=== PATIENT | male | born 1950 | race Caucasian/White ===

== ENCOUNTER → 2019-09-24 | Outpatient (CLI) | payer MEDICARE ==
--- NOTE | 2019-09-24 14:51 | REPPI ---
TRANSRECTAL PROSTATE ULTRASOUND WITH ULTRASOUND GUIDANCE FOR PROSTATE BIOPSY: Transrectal ultrasound of the prostate performed. Prostate measures 3.2 x 2.8 x 3.9 cm for a total volume of 18.1 mL. Small cystic changes and echogenic calcifications are seen in the prostate. Echotexture is heterogenous. No mass is seen. Ultrasound guidance was provided for Dr. Ayers who performed ultrasound guided biopsy of the prostate. Electronically Signed by Robbie Weller MD 09/25/2019 01:47 P
== END ==
LOC: M SMT PRO 07:59
PROVIDERS: ATTEND Nurse Practitioner Women's Health
DX: C61 Malignant neoplasm of prostate (principal)
CPT/HCPCS: 55700; 76872; 76942; G0416

== ENCOUNTER → 2019-10-01 | Outpatient (CLI) | payer MEDICARE ==
[2019-10-01 16:40] LABS: CREATININE FOR GFR 1.93 MG/DL (0.70-1.30); GLOMERULAR FILTRATION RATE 36.7 (>42); POTASSIUM SERUM 4.6 MEQ/L (3.5-5.1)
== END ==
LOC: M LAB 14:51
PROVIDERS: ATTEND Urology
DX: C61 Malignant neoplasm of prostate (principal)
CPT/HCPCS: 36415; 80048; 96402; G0463; J9155

== ENCOUNTER → 2019-10-07 | Outpatient (CLI) | payer MEDICARE ==
--- NOTE | 2019-10-07 14:13 | REP ---
WHOLE BODY BONE SCAN: HISTORY: Prostate carcinoma. Question metastasis. TECHNIQUE: 21.8 mCi of technetium 99m MDP is injected and standard whole body bone scan imaging is acquired. SCINTIGRAPHIC FINDINGS: There is a renal uptake visualized only on the left. No right renal uptake is appreciated. Distribution of skeletal tracer is normal. There is some degenerative uptake in the acromioclavicular joints bilaterally. There is mildly increased uptake in the manubrial clavicular and first costochondral junctions bilaterally as well. There is uptake in the soft tissues of the left forearm related to IV site extravasation. This is artifactual. There is mild degenerative uptake in the cervical spine. There is increased uptake in the distribution of the right frontal and right ethmoid sinuses consistent with chronic paranasal sinusitis. There is no evidence to suggest skeletal metastatic disease. IMPRESSION: 1. No evidence of skeletal metastasis. 2. Findings suggestive of paranasal sinus inflammation on the right side involving frontal and ethmoid air cells. Consider paranasal sinus radiographs or CT scanning. 3. Unilateral renal uptake. Absent uptake from the right kidney. Electronically Signed by Richie Flowers MD 10/07/2019 05:26 P
== END ==
LOC: M RAD 09:00
PROVIDERS: ATTEND Urology
DX: C61 Malignant neoplasm of prostate (principal)
CPT/HCPCS: 78306; A9503

== ENCOUNTER → 2019-10-10 | Outpatient (CLI) | payer MEDICARE ==
--- NOTE | 2019-10-10 13:01 | REP ---
Clinical: History of prostate cancer. Technique: Axial noncontrast images from the lung bases to the pubic symphysis with coronal and sagittal re-formations. Comparison: None. Findings: Lung bases demonstrate advanced emphysematous changes. Calcified granuloma in the right middle lobe noted. Liver, spleen, pancreas, gallbladder, bilateral adrenal glands and left kidney are essentially normal for noncontrast evaluation. The right kidney appears atrophic. The enteric system is without obstruction or acute inflammatory process. Normal terminal ileum and appendix identified in the right lower quadrant. Colonic diverticulosis noted without acute diverticulitis. Pelvis demonstrates relatively normal bladder. The prostate gland is nonspecific by current CT evaluation. No ascites. No free air. No adenopathy. Atherosclerotic changes to the aorta noted without aneurysm. Skeletal structures demonstrate generalized age-related changes without obvious focal osseous lesion to suggest metastatic disease. Impression: 1. Atrophic appearance to the right kidney. 2. Advanced emphysematous disease. 3. Diverticulosis without acute diverticulitis. 4. No ascites, focal inflammatory stranding, or adenopathy. 5. No obvious evidence for metastatic disease. Electronically Signed by Pramod Pascual MD 10/10/2019 12:52 P
== END ==
LOC: M RAD 12:23
PROVIDERS: ATTEND Urology
DX: K57.30 Diverticulosis of large intestine without perforation or abscess without bleeding (principal); N26.1 Atrophy of kidney (terminal); J44.9 Chronic obstructive pulmonary disease, unspecified; C61 Malignant neoplasm of prostate

== ENCOUNTER → 2019-11-12 | Outpatient (CLI) | payer MEDICARE ==
--- NOTE | 2019-11-12 14:22 | REPPI ---
Prostate sonography: History: Fiducial marker placement. Prior prostate ultrasound and biopsy. Sonographic findings: Transrectal sonographic guidance is provided to Dr. Ayers who performed trans rectal ultrasound guided fiducial marker placement. Electronically Signed by Richie Flowers MD 11/12/2019 02:13 P
== END ==
LOC: M SMT PRO 08:39
PROVIDERS: ATTEND Urology
DX: C61 Malignant neoplasm of prostate (principal)
CPT/HCPCS: 55876; 76872; 76942; 96402; J9217